=== PATIENT | male | born 1985 | race Caucasian/White ===

== ENCOUNTER 2024-07-30 19:35 | Emergency (ER) | payer BC ==
[2024-07-30 19:43] VITALS: TEMP 98.2
--- NOTE | 2024-07-30 20:07 | ED ---
General Adult HPI - General Chief complaint: ENT Stated complaint: L Side Facial Numbness Time Seen by Provider: 07/30/24 19:49 Source: patient Mode of arrival: ambulatory Limitations: no limitations - History of Present Illness Initial comments: 38-year-old male with no significant medical history resents emergency department for complaints of left ear pain. He states over the past 3 days he has been experiencing left ear redness and pressure worsening using Flonase and Sudafed with minimal relief in symptoms. On his drive home from work this afte rnoon he began to experience a paresthesia sensation of the left side of his face in addition to difficulty closing gait, diarrhea, headache. Over abdominal drooping of the left side of his back. States that he was eating spicy beef jerky that tasted different on the left side of his tongue. He denies extremity paresthesias, weakness, headaches, visual disturbances, chest pain, difficulty breathing. Denies history of HSV. States that he was recently treated for pneumonia and has completed antibiotics. - Related Data Previous Rx's Medication Instructions Recorded Amoxic-Pot Clav 875-125Mg 1 tab PO Q12HR #20 tab 07/30/24 [Augmentin 875-125] predniSONE [Deltasone] 60 mg PO DAILY #21 tab 07/30/24 valACYclovir HCL [Valacyclovir] 1,000 mg PO TID #21 tab 07/30/24 Allergies Allergy/AdvReac Type Severity Reaction Status Date / Time No Known Allergies Allergy Verified 07/30/24 19:43 Review of Systems ROS Statement: Those systems with pertinent positive or pertinent negative responses have been documented in the HPI. ROS Other: All systems not noted in ROS Statement are negative. Past Medical History Past Medical History: No Reported History History of Any Multi-Drug Resistant Organisms: None Reported Past Surgical History: No Surgical Hx Reported Past Psychological History: No Psychological Hx Reported Smoking Status: Never smoker Past Alcohol Use History: Occasional Past Drug Use History: None Reported General Exam Limitations: no limitations General appearance: alert, in no apparent distress Pupils: Present: normal accommodation, other (left eyelid slow to response muscle blinking) Expanded Eyelids: Normal Inspection: Bilateral Pupils: Regular, Round: Bilateral, Reactive: Bilateral Sclera/Conjunctival: Normal Inspection: Bilateral ENT exam: Present: normal exam, mucous membranes moist Expanded TM/Canal exam: Erythema: Left TM, Bulging: Left TM, Effusion: Left TM Neck exam: Present: normal inspection. Absent: tenderness, meningismus, lymphadenopathy Respiratory exam: Present: normal lung sounds bilaterally. Absent: respiratory distress, wheezes, rales, rhonchi, stridor Cardiovascular Exam: Present: regular rate, normal rhythm, normal heart sounds. Absent: systolic murmur, diastolic murmur, rubs, gallop, clicks GI/Abdominal exam: Present: soft, normal bowel sounds. Absent: distended, tenderness, guarding, rebound, rigid Extremities exam: Present: normal inspection, full ROM, normal capillary refill. Absent: tenderness, pedal edema, joint swelling, calf tenderness Course Vital Signs 07/30/24 07/30/24 07/30/24 19:40 20:24 20:52 Temperature 98.2 F Pulse Rate 79 70 85 Respiratory 18 18 16 Rate Blood Pressure 187/134 155/106 151/95 O2 Sat by Pulse 99 98 98 Oximetry 07/30/24 21:50 Temperature Pulse Rate 77 Respiratory 16 Rate Blood Pressure 141/87 O2 Sat by Pulse 96 Oximetry Medical Decision Making - Medical Decision Making Was pt. sent in by a medical professional or institution (, PA, PRESS ASSISTANT AND FEEDER, urgent c are, hospital, or skilled nursing...) When possible be specific @ -No Did you speak to anyone other than the patient for history (EMS, parent, family, police, friend...)? What history was obtained from this source @ -No Did you review nursing and triage notes (agree or disagree)? Why? @ -I reviewed and agree with nursing and triage notes Were old charts reviewed (outside hosp., previous admission, EMS record, old EKG, old radiological studies, urgent care reports/EKG's, skilled nursing records)? Report findings @ -No old charts were reviewed Differential Diagnosis (chest pain, altered mental status, abdominal pain women, abdominal pain men, vaginal bleeding, weakness, fever, dyspnea, syncope, headache, dizziness, GI bleed, back pain, seizure, CVA, palpatations, mental health, musculoskeletal)? @ -Differential CVA Ischemic stroke, hemorrhagic stroke, brain tumor, atypical migraine, Wernicke's encephalopathy, seizure, multiple sclerosis, meningitis, encephalitis, hypoglycemia, Guillain-Fallon, electrolytes disturbance, myasthenia gravis.... This is not meant to be an all-inclusive list EKG interpreted by me (3pts min.). @ -none X-rays interpreted by me (1pt min.). @ -None done CT interpreted by me (1pt min.). @ -None done U/S interpreted by me (1pt. min.). @ -None done What testing was considered but not performed or refused? (CT, X-rays, U/S, labs)? Why? @ -None What meds were considered but not given or refused? Why? @ -None Did you discuss the management of the patient with other professionals (professionals i.e. , PA, PRESS ASSISTANT AND FEEDER, lab, RT, psych nurse, nephrology social worker, manufacturing engineer, teacher, weapons officer naval activity, case consultant)? Give summary @ -No Was smoking cessation discussed for >3mins.? @ -No Was critical care preformed (if so, how long)? @ -No Were there social determinants of health that impacted care today? How? (Homelessness, low income, unemployed, alcoholism, drug addiction, transportation, low edu. Level, literacy, decrease access to med. care, [facility], rehab)? @ -No Was there de-escalation of care discussed even if they declined (Discuss DNR or withdrawal of care, Hospice)? DNR status @ -No What co-morbidities impacted this encounter? (DM, HTN, Smoking, COPD, CAD, Cancer, CVA, ARF, Chemo, Hep., AIDS, mental health diagnosis, sleep apnea, morbid obesity)? @ -None Was patient admitted / discharged? Hospital course, mention meds given and route, prescriptions, significant lab abnormalities, going to OR and other pertinent info. @ -Discharge. 38-year-old male presents emergency department with left ear fullness and left-sided facial paresthesias. NIH 0. Symptoms align with Fagan's palsy. No acute neurological deficits on exam. Left TM is erythematous and bulging concerning for otitis media and will be treated with Augmentin. Patient is initially hypertensive on arrival however after observation emergency department blood pressure has resolved. He is provided with outpatient prescription for valcycolvir, prednisone, Augmentin. Recommend follow-up with primary care provider in the next 1 to 3 days. case discussed with Dr. schmidt Undiagnosed new problem with uncertain prognosis? @ -No Drug Therapy requiring intensive monitoring for toxicity (Heparin, Nitro, Insulin, Cardizem)? @ -No Were any procedures done? @ -No Diagnosis/symptom? @ -bells palsy, otitis media Acute, or Chronic, or Acute on Chronic? @ -acute Uncomplicated (without systemic symptoms) or Complicated (systemic symptoms)? @ -uncomplicated Side effects of treatment? @ -No Exacerbation, Progression, or Severe Exacerbation? @ -No Poses a threat to life or bodily function? How? (Chest pain, USA, OR, pneumonia, PE, COPD, DKA, ARF, appy, cholecystitis, CVA, Diverticulitis, Homicidal, Suicidal, threat to staff... and all critical care pts) @ -No Disposition Clinical Impression: Fagan's palsy, Otitis media Disposition: HOME SELF-CARE Condition: Good Instructions (If sedation given, give patient instructions): Fagan Palsy (ED) Additional Instructions: Please return to the Emergency Department if symptoms worsen or any other concerns. Prescriptions: Amoxic-Pot Clav 875-125Mg [Augmentin 875-125] 1 tab PO Q12HR #20 tab predniSONE [Deltasone] 60 mg PO DAILY #21 tab valACYclovir HCL [Valacyclovir] 1,000 mg PO TID #21 tab Is patient prescribed a controlled substance at d/c from ED?: No Referrals: None,Stated [Primary Care Provider] - 1-2 days Time of Disposition: 21:01
[2024-07-30 20:53] VITALS: RESP 16
[2024-07-30 21:55] VITALS: BP 141/87; PULSE 77
== END 2024-07-30 21:55 | disposition home or self-care (01) ==
LOC: EC 19:35
DX: G51.0 Bell's palsy (principal); H66.92 Otitis media, unspecified, left ear
CPT/HCPCS: 99284